=== PATIENT | male | born 1990 | race Caucasian/White ===

== ENCOUNTER 2021-12-24 22:22 | Emergency (ER) | payer BC, OTHER ==
[2021-12-25] MEDS ORDERED: Ondansetron 4 MG/2 ML SDV IVPUSH ONE (00:12)
[2021-12-25] MEDS ORDERED: Sodium Chloride 0.9% 1,000 ML IV ONE (00:12)
[2021-12-25] MEDS ORDERED: Ketorolac 30 MG/ML SDV IVPUSH ONE (00:12)
[2021-12-25 00:32] LABS: BLOOD UREA NITROGEN,BUN 14 mg/dL (7.0-18.0); CARBON DIOXIDE,CO2 29.7 mmol/L (21.0-32.0); CHLORIDE,CL 104 mmol/L (98-107); GLUCOSE RANDOM 116 mg/dL (74-106); LIPASE 80 U/L (73-393); POTASSIUM,K 4.4 mmol/L (3.5-5.1); SODIUM,NA 140 mmol/L (136-148)
[2021-12-25] MEDS ORDERED: Tamsulosin 0.4 MG Cap.ER PO STA (01:27)
== END 2021-12-25 01:38 | disposition home or self-care (01) ==
LOC: MW.ED 22:22
DX: N13.2 Hydronephrosis with renal and ureteral calculous obstruction (principal); Z88.1 Allergy status to other antibiotic agents
CPT/HCPCS: 36415; 74176; 80053; 81001; 83690; 85025; 96374; 96375; 99284; A9270; J1885; J2405; J7030; 99282

== ENCOUNTER 2025-02-16 14:43 | Emergency (ER) | payer OTHER, BC | END 2025-02-16 17:29 | disposition home or self-care (01) | LOC: MW.ED 14:43 | DX: S05.11XA Contusion of eyeball and orbital tissues, right eye, initial encounter (principal); S00.01XA Abrasion of scalp, initial encounter; S40.212A Abrasion of left shoulder, initial encounter; F17.200 Nicotine dependence, unspecified, uncomplicated; Z88.8 Allergy status to other drugs, medicaments and biological substances; Y04.8XXA Assault by other bodily force, initial encounter | CPT/HCPCS: 70486; 70486-26; 99282; 99284 ==